=== PATIENT | female | born 1960 | race African-American/Black ===

== ENCOUNTER 2018-01-28 13:40 | Observation (INO) | payer SELFPAY ==
[~2018-01-28] VITALS: Ht 160 cm; Wt 67.6 kg
[2018-01-28] MEDS ORDERED: ASPIRIN 325 MG TAB PO ONE (15:00)
[2018-01-28] MEDS ORDERED: SODIUM CHLORIDE FLUSH 10 ML SYR INJ PRN (16:00)
[2018-01-28] MEDS ORDERED: ACETAMINOPHEN 325 MG TAB PO ONE (20:00)
[2018-01-28 23:10] VITALS: BP 156/94
[2018-01-28 23:19] VITALS: BP 156/94
[2018-01-28 23:35] LABS: CREATINE KINASE 120 IU/L (29-168)
[2018-01-29] VITALS (8 sets, daily range): BP systolic 122–163; BP diastolic 67–97
[2018-01-29 06:20] LABS: CHOL/HDL RATIO 5.2 (3.0-3.6)
[2018-01-29 06:29] LABS: CREATINE KINASE MB 0.7 ng/mL (0-5.0)
[2018-01-29] MEDS: ACETAMINOPHEN 325 MG TAB PO PRN (06:56)
[2018-01-29 14:32] LABS: CREATINE KINASE MB 0.6 ng/mL (0-5.0)
--- NOTE | 2018-01-29 19:22 | Consultation ---
DATE OF CONSULTATION: January 29, 2018 CARDIOLOGY CONSULTATION REASON FOR CONSULTATION: Chest pain. CHIEF COMPLAINT: I had pressure in my chest and shortness of breath yesterday. HISTORY OF PRESENT ILLNESS: Patient is a 57-year-old female with history of hypertension not under treatment who was in her usual state of health until 2 days prior to presentation when she describes having an episode of pressure in her chest. This occurred several hours after eating some spicy food; however, it was pressure-like, constant, lasting several hours, not associated with any nausea, vomiting or diaphoresis or shortness of breath. No radiation, no alleviating factors. She went to bed that night and the next morning her chest pain had improved; however, during the day that day she describes feeling shortness of breath with using stairs which is very unusual for her and because of that she decided to come to the ER to get evaluated. Does not have any prior cardiac history. REVIEW OF SYSTEMS: A 10-point review of systems was performed and was negative other than as mentioned in history of present illness. PAST MEDICAL HISTORY: Hypertension. FAMILY HISTORY: No family history of early CAD. Dad has high blood pressure. SOCIAL HISTORY: She does not smoke, drink or use illicit drugs. PHYSICAL EXAMINATION: VITALS: Temperature 97.6, pulse 70, respiratory rate 18, blood pressure 163/97, satting 100% on room air. EYES: Conjunctivae clear. EARS, NOSE, MOUTH AND THROAT: Normal mucosa. No pallor or bleeding. NECK: No jugular venous distention. MSK: Normal tone and strength. No atrophy or abnormal movements. EXTREMITIES: No clubbing or cyanosis. SKIN: No venous stasis changes or ulcers. GENERAL: Well-developed, nourished female. CARDIOVASCULAR: PMI nondisplaced. Regular S1 and S2. No murmurs, rubs or gallops. Normal carotid pulses. Palpable femoral pulses. Palpable pedal pulses. No peripheral edema or varicosities. RESPIRATORY: No respiratory distress. Clear to auscultation bilaterally. ABDOMEN: Soft, nontender, no masses, no hepatosplenomegaly. NEURO AND PSYCHIATRIC: Alert and oriented to person, place and time. Normal affect. ALLERGIES: REVIEWED. CURRENT INPATIENT AND OUTPATIENT MEDICATIONS: Reviewed. LABORATORY DATA: All available lab data reviewed and significant for negative cardiac enzymes x3 sets and elevated LDL cholesterol 187. IMAGING DATA: Reviewed. Electrocardiogram reviewed shows normal sinus rhythm. No ST-T changes concerning for ischemia. ASSESSMENT 1. Atypical chest pain. 2. Hypertension. 3. Hyperlipidemia. 4. Dyspnea on exertion. PLAN: Patient has already been ruled out for MS. Recommend getting an echocardiogram and nuclear stress test to evaluate for causes of her chest pain and shortness of breath. If the workup above is normal, patient is okay to be discharged home from cardiovascular standpoint with followup with me in clinic in 2 weeks post discharge. Thank you for this consult. We will continue to follow. Job#: [id number]
[2018-01-30] VITALS (8 sets, daily range): BP systolic 101–146; BP diastolic 62–90
--- NOTE | 2018-01-30 11:18 | Progress Note ---
DATE: January 30, 2018 CARDIOLOGY PROGRESS NOTE SUBJECTIVE: No major events overnight. Asked about the stress test today. Has not had any further episodes of chest pain or shortness of breath. REVIEW OF SYSTEMS: As above, otherwise negative. OBJECTIVE VITALS: Temperature 96.6, pulse 78, respiratory rate 18, blood pressure 122/72, pulse oximetry 98% on room air. GENERAL: Well-developed female. CARDIOVASCULAR: Normal S1 and S2. No murmurs, rubs or gallops. PMI nondisplaced. Palpable carotid pulses. Palpable radial pulses. Palpable pedal pulses. LUNGS: Clear to auscultation bilaterally. ABDOMEN: Soft, nontender, nondistended. NEURO AND PSYCHIATRIC: Alert and oriented to person, place and time. Normal affect. LABORATORY DATA: Reviewed. MEDICATIONS: Reviewed. IMAGING DATA: Reviewed. TELEMETRY DATA: Reviewed. ASSESSMENT 1. Atypical chest pain. 2. Hypertension. 3. Hyperlipidemia. 4. Dyspnea on exertion. PLAN: Pending stress test today. If the stress test is negative, patient okay to be discharged and follow up with us as an outpatient for optimization of her medical therapy and risk factor control. Will discuss further options with the patient if the stress test is abnormal. Thank you for this consult. Job#: [id number]
--- NOTE | 2018-01-30 13:16 | Cardiology Report ---
DATE OF STUDY: January 30, 2018 NUCLEAR STRESS TEST INDICATIONS: Chest pain. PROCEDURE: The patient performed treadmill exercise using a Yo protocol, exercising for 7 minutes and 36 seconds to stage 3 and completing an estimated work load of 10.1 metabolic equivalents (METS). The test was terminated due to fatigue. The heart rate was 91 beats per minute at rest and increased to 169 beats per minute at peak exercise which is 103% of the maximum predicted heart rate. The resting blood pressure was 126/90 mmHg and increased to 221/131 mmHg which is a hypertensive response. Patient did not develop any symptoms other than fatigue during the procedure. Resting electrocardiogram demonstrated normal sinus rhythm. There were no ST segment changes consistent with myocardial ischemia. Myocardial perfusion imaging was performed at rest following the injection of 11 millicuries of tetrofosmin. At peak exercise the patient was injected with 32.5 millicuries of tetrofosmin and exercise was continued for 1 minute. Gated post rest tomographic imaging was performed. FINDINGS: The overall quality of the study is good. Attenuation artifact is absent. Left ventricular cavity is noted to be normal size on the rest and stress studies. SPECT images demonstrate homogenous tracer distribution throughout the myocardium. Gated SPECT imaging reveals normal myocardial thickening and wall motion. The left ventricular ejection fraction was calculated to be greater than 70%. IMPRESSION: Normal clinical and ECG exercise treadmill stress test. Hypertensive response to exercise stress. Myocardial perfusion imaging is normal. Overall left ventricular systolic function was normal without regional wall motion abnormalities. Job#: [id number] DG cc:TORREY SAAVEDRA MD
[2018-01-30] MEDS: ACETAMINOPHEN 325 MG TAB PO PRN (19:53)
[2018-01-31] VITALS: BP 117/65
[2018-01-31 04:00] VITALS: BP 116/60
[2018-01-31 07:35] VITALS: BP 111/74
[2018-01-31] MEDS: ACETAMINOPHEN 325 MG TAB PO PRN (08:10)
--- NOTE | 2018-01-31 08:39 | Discharge Summary ---
Ms. Loaiza is a 57-year-old female with history of hypertension. She came to the emergency room complaining of two days to one week history of chest pain on and off like a pressure, lasting several minutes. It got worse during the day and she decided to come to the emergency room. She has been evaluated by cardiology. She is going to go for a nuclear stress test today, then I think she is going to discharge home. PHYSICAL EXAMINATION GENERAL: She is awake and alert. VITAL SIGNS: Temperature is 96.6, blood pressure 122/72. HEART: Regular rate. LUNGS: Clear to auscultation. ABDOMEN: Soft. On the blood work, cardiac enzymes times three were negative. Chest x-ray did not show any acute abnormalities. ASSESSMENT AND PLAN 1. Chest pain. 2. Hypertension. symptoms. So far cardiac enzymes and EKG have been normal. She has been seen by cardiology. She is going to go for a nuclear stress test today. If negative patient is going to be discharged home and have her followup as an outpatient in one week. All this was discussed with patient. All questions were answered to satisfaction. TORREY SAAVEDRA MD Job#: [id number] VINNIE
--- NOTE | 2018-01-31 10:48 | Discharge Summary ---
Ms. Loaiza is a 57-year-old female with history of hypertension. She came to the emergency room with chest pain on and off for a few days. She was seen by book store associate and had a stress test done yesterday. We have not received the results yet, but we are going to call the book store associate for a report. If negative, the patient is going to be able to go home. On physical examination, she is awake and alert. Temperature is 96.1, blood pressure 111/74. The heart is regular rate. Lungs are clear to auscultation. Abdomen is soft. On the blood work, cardiac enzymes are negative. Chest x-ray: No acute findings. DISCHARGE DIAGNOSES 1. Chest pain. 2. Hypertension. 3. Hyperlipidemia. The plan at the present time is to discharge the patient home if the stress test is negative. Have her follow up with her PCP. She is to call me or come back to the emergency room if any recurrent problem. All of this was discussed with the patient, and all questions were answered to satisfaction. TORREY SAAVEDRA MD Job#: [id number]
[2018-01-31 11:06] VITALS: BP 120/77
[2018-01-31 11:11] VITALS: BP 111/74
--- NOTE | 2018-01-31 13:07 | Progress Note ---
DATE: January 31, 2018 CARDIOLOGY PROGRESS NOTE SUBJECTIVE: No major events overnight. No more chest pain episodes. Feels well overall. Blood pressure well controlled. Had stress test yesterday. REVIEW OF SYSTEMS: As above, otherwise negative. OBJECTIVE GENERAL: A well-developed female. CARDIOVASCULAR: Normal S1 and S2. No murmurs, rubs or gallops. PMI nondisplaced. Palpable carotid pulses. Palpable radial pulses. Palpable pedal pulses. RESPIRATORY: Lungs are clear to auscultation bilaterally. ABDOMEN: Soft, nontender, nondistended. NEURO AND PSYCH: Alert and oriented to person, place and time. Normal affect. LAB DATA: Reviewed. MEDICATIONS: Reviewed. IMAGING DATA: Reviewed. TELEMETRY DATA: Reviewed. ASSESSMENT 1. Atypical chest pain. 2. Hypertension. 3. Hyperlipidemia. 4. Dyspnea on exertion. PLAN: Stress test results reviewed with the patient in detail. She has adequate exercise capacity for her age, and the nuclear perfusion showed normal myocardial perfusion without any significant defects. This makes her low risk for cardiovascular events. She is okay to be discharged from a cardiology standpoint. She will follow with me in clinic in 2 to 4 weeks for risk-factor control and primary prevention. Thank you for this consult. Job#: [id number] [place]
== END 2018-01-31 13:25 | disposition home or self-care (01) ==
LOC: FSED 13:40 → ERHOLD 19:03 → IMCU 22:30
PROVIDERS: ADMIT Internal Medicine; ATTEND Internal Medicine
DX: R07.89 Other chest pain (principal); I25.2 Old myocardial infarction; I25.10 Atherosclerotic heart disease of native coronary artery without angina pectoris; I11.9 Hypertensive heart disease without heart failure; E78.5 Hyperlipidemia, unspecified; Z88.0 Allergy status to penicillin; Z88.2 Allergy status to sulfonamides
CPT/HCPCS: 36415 ×2; 71046; 78452; 80053; 80061; 82550 ×2; 82553 ×2; 84484 ×2; 85025; 85379; 93005 ×2; 93017; 99284; A9502; G0378 ×4